=== PATIENT | male | born 1970 | race Caucasian/White ===

== ENCOUNTER 2016-07-13 18:45 | Emergency (ER) | payer MEDICARE, OTHER ==
[~2016-07-13] VITALS: Ht 170.2 cm; Wt 52.7 kg
[2016-07-13 18:51] VITALS: Ht 170.2 cm; Wt 52.7 kg
--- NOTE | 2016-07-13 22:35 | ERA ---
ER Documentation Chief Complaint Date/Time DATE: 07/13/16 TIME: 22:34 Chief Complaint stays snf- run out insurance , unable to give insulin HPI The patient is a 46-year-old male, presenting to the ER because he does not have an insulin for 1 day. He was transferred from a snf to assisted living home because of insurance. However he was not able to get his insulin, therefore he came to the ER. He denies fever, chills, neck pain, chest pain, dyspnea, abdominal pain, vomiting. He had history of chronic diarrhea for more than 3 years. He is very uncooperative during history and declined physical exam Past medical history: Diabetes mellitus, legally blind, peripheral neuropathy Past surgical history: Eye surgery ROS All systems reviewed and are negative except as per history of present illness. Medications Home Meds Reported Medications Insulin Isophan/Regular (Humulin 70/30) 100 Units/Ml Susp, 10-12 UNIT SC BID WITH MEALS, EA 07/13/16 Loperamide Hcl* (Imodium*) 2 Mg Capsule, 2 MG PO PRN, CAP MAX 16 mg/day 07/13/16 Tramadol Hcl* (Ultram*) Unknown Strength Tablet, PO PRN Y for PAIN, TAB 07/13/16 Pregabalin* (Lyrica*) Unknown Strength Capsule, PO PRN, CAP 07/13/16 Allergies Allergies: Coded Allergies: No Known Allergy (Unverified , 07/13/16) Physical Exam Vitals Vital Signs Date Time Temp Pulse Resp B/P Pulse Ox O2 Delivery O2 Flow Rate FiO2 07/14/16 00:54 78 16 149/109 100 Room Air 07/13/16 23:16 74 16 129/99 100 Room Air 07/13/16 18:51 97.6 48 20 88/48 98 Physical Exam Const: No acute distress. Head: Atraumatic. Neck: Full range of motion. No meningismus. Resp: Clear to auscultation bilaterally. Cardio: Regular rate and rhythm, no murmurs. Abd: Soft, non distended, normal bowel sounds, non tender. Skin: No petechiae or rashes. Back: No midline or flank tenderness. Ext: No cyanosis, or edema. Neur: Limited because he did not cooperate Psych: Limited because he did not cooperate. Result Diagram: 2/23/17 2258 2/23/17 2258 Results 24 hrs Laboratory Tests Test 07/13/16 18:59 07/13/16 22:39 07/13/16 22:58 07/13/16 23:00 Bedside Glucose 358mg/dL 303mg/dL Activated Partial Thromboplast Time 27.4Sec Alanine Aminotransferase (ALT/SGPT) 46IU/L Albumin 3.9g/dl Albumin/Globulin Ratio 0.95 Alkaline Phosphatase 103IU/L Anion Gap 17 Aspartate Amino Transf (AST/SGOT) 34IU/L Basophils # 0.010^3/ul Basophils % 0.4% Blood Urea Nitrogen 17mg/dl Calcium Level 9.0mg/dl Carbon Dioxide Level 31mmol/L Chloride Level 96mmol/L Creatinine 0.47mg/dl Direct Bilirubin 0.00mg/dl Eosinophils # 0.310^3/ul Eosinophils % 4.9% Globulin 4.10g/dl Glucose Level 315mg/dl Hematocrit 34.7% Hemoglobin 11.3g/dl INR International Normalized Ratio 0.92 Indirect Bilirubin 0.0mg/dl Lymphocytes # 2.210^3/ul Lymphocytes % 42.4% Mean Corpuscular Hemoglobin 23.8pg Mean Corpuscular Hemoglobin Concent 32.6g/dl Mean Corpuscular Volume 73.1fl Mean Platelet Volume 11.9fl Monocytes # 0.510^3/ul Monocytes % 10.4% Neutrophils # 2.110^3/ul Neutrophils % 41.5% Nucleated Red Blood Cells # 0.010^3/ul Nucleated Red Blood Cells % 0.0/100WBC Platelet Count 50069^3/UL Potassium Level 4.7mmol/L Prothrombin Time 12.4Sec Prothrombin Time Ratio 1.0 Red Blood Count 4.7510^6/ul Red Cell Distribution Width 14.9% Sodium Level 139mmol/L Total Bilirubin 0.0mg/dl Total Protein 8.0g/dl Troponin I < 0.012ng/ml White Blood Count 5.110^3/ul Lactic Acid Level 1.1mmol/L Test 07/13/16 23:50 07/14/16 00:41 Urine Bilirubin NEGATIVE Urine Clarity CLEAR Urine Color LT. YELLOW Urine Glucose >=1000% Urine Hemoglobin TRACE Urine Ketones 15 Urine Leukocyte Esterase NEGATIVE Urine Microscopic RBC Pending Urine Microscopic WBC Pending Urine Nitrite NEGATIVE Urine Specific Olla 1.020 Urine Total Protein NEGATIVE Urine Urobilinogen 0.2 E.U./dL Urine pH 6.0 Bedside Glucose 281mg/dL Current Medications Medications (Trade) Dose Ordered Sig/Maral Route PRN Reason Start Time Stop Time Status Last Admin Dose Admin Sodium Chloride (NS) 1,630 ml @ 1,630 mls/hr BOLUS X1 ONCE IV 07/13/16 23:00 07/13/16 23:59 DC 07/13/16 23:05 Insulin Human Lispro (Humalog) 6 unit ONCE ONCE SC 07/14/16 01:26 07/14/16 01:28 DC Procedures/[place] [id number] Radiology Main Line: [phone] DIAGNOSTIC IMAGING REPORT Patient: CARITO LEES : 1970 Age: 46 Sex: M MR #: [id number] DOS: 07/13/16 2259 Ordering MD: EBER GABRIEL MD Location: E/R Room/Bed: PROCEDURE: XR Chest. CLINICAL INDICATION: Possible sepsis. TECHNIQUE: Portable AP supine views of the chest were obtained. COMPARISON: None. FINDINGS: The cardiomediastinal silhouette is within normal limits. The lungs are clear. There is no evidence for pleural effusion, pneumothorax or pulmonary vascular congestion. The osseous structures are intact with no evidence for acute abnormality. RPTAT:HJJR IMPRESSION: No evidence for acute intrathoracic pathology. Physician Devi Date Time Electronically viewed and signed by Physician Devi on 07/13/2016 23:52 JR/ CC: EBER GABRIEL MD EKG: Read by emergency physician Rate/Rhythm: Normal Sinus Rhythm 80 beats/min QRS, ST, T-waves: No ST elevation, no T inversion Impression: Normal EKG MEDICAL MAKING DECISION: The patient is a 46-year-old male, presenting with acute diabetic hyperglycemia, acute dehydration. He was treated with normal saline 30 mL/kg IV, Humalog 6 units subcutaneously with good response. The differential diagnoses considered include but are not limited to HHS, DKA, dehydration, electrolyte imbalance, infection, medical noncompliance Departure Diagnosis: Primary Impression: Diabetes mellitus with hyperglycemia Additional Impressions: Dehydration Anemia Condition: Good Comments I discussed the findings with the patient. I advised the patient to follow-up with the primary physician in about 1-2 days, sooner if needed and return if any concern. EBER GABRIEL MD Jul 13, 2016 22:35
[2016-07-13] MEDS ORDERED: LYRI25 PO (22:43)
[2016-07-13] MEDS ORDERED: TRAM-40 PO (22:44)
[2016-07-13] MEDS ORDERED: LOPE2CAP PO (22:45)
[2016-07-13] MEDS ORDERED: NOVO7030 SC (22:45)
[2016-07-13] MEDS ORDERED: SOD CHLORIDE 0.9% IV ONE (23:00)
[2016-07-13 23:43] LABS: ADD SCAN DIFF NO
[2016-07-13 23:52] LABS: BASOPHILS % 0.4 % (0.0-2.0); EOSINOPHILS # 0.3 10^3/ul (0.0-0.5); EOSINOPHILS % 4.9 % (0.0-7.0); HEMATOCRIT 34.7 % (42.0-52.0); HEMOGLOBIN 11.3 g/dl (14.0-18.0); LYMPHOCYTES # 2.2 10^3/ul (0.8-2.9); LYMPHOCYTES % 42.4 % (15.0-51.0); MEAN CORPUSCULAR HEMOGLOBIN 23.8 pg (29.0-33.0); MEAN CORPUSCULAR HGB CONC 32.6 g/dl (32.0-37.0); MEAN CORPUSCULAR VOLUME 73.1 fl (82.0-101.0); MEAN PLATELET VOLUME 11.9 fl (7.4-10.4); MONOCYTE # 0.5 10^3/ul (0.3-0.9); MONOCYTES % 10.4 % (0.0-11.0); NEUTROPHIL # 2.1 10^3/ul (1.6-7.5); NEUTROPHILS % 41.5 % (39.0-77.0); PLATELET COUNT 195 10^3/UL (140-415); RED BLOOD COUNT 4.75 10^6/ul (4.70-6.10); RED CELL DISTRIBUTION WIDTH 14.9 % (11.5-14.5); WHITE BLOOD COUNT 5.1 10^3/ul (4.8-10.8)
--- NOTE | 2016-07-13 23:52 | RADRPT ---
PROCEDURE: XR Chest. CLINICAL INDICATION: Possible sepsis. TECHNIQUE: Portable AP supine views of the chest were obtained. COMPARISON: None. FINDINGS: The cardiomediastinal silhouette is within normal limits. The lungs are clear. There is no evidenc e for pleural effusion, pneumothorax or pulmonary vascular congestion. The osseous structures are i ntact with no evidence for acute abnormality. RPTAT:HJJR IMPRESSION: No evidence for acute intrathoracic pathology. Physician Devi Date Time Electronically viewed and signed by Physician Devi on 07/13/2016 23:52 JR/
[2016-07-14 00:01] LABS: CHLORIDE 96 mmol/L (97-110); INR 0.92; PROTIME 12.4 Sec (12.2-14.2)
[2016-07-14 00:02] LABS: ALBUMIN 3.9 g/dl (3.3-4.9); PARTIAL THROMBOPLASTIN TIME 27.4 Sec (25.0-35.0); POTASSIUM 4.7 mmol/L (3.5-5.1); SODIUM 139 mmol/L (135-144)
[2016-07-14 00:04] LABS: CREATININE 0.47 mg/dl (0.61-1.24)
[2016-07-14 00:05] LABS: ALANINE AMINOTRANSFERASE 46 IU/L (13-69); ALBUMIN/GLOBULIN RATIO 0.95; ALKALINE PHOSPHATASE 103 IU/L (42-121); ANION GAP 17 (8-16); ASPARTATE AMINO TRANSFERASE 34 IU/L (15-46); BLOOD UREA NITROGEN 17 mg/dl (7-20); CARBON DIOXIDE 31 mmol/L (21-31); GLUCOSE 315 mg/dl (70-220)
[2016-07-14 00:31] LABS: TROPONIN-I < 0.012 ng/ml (0.00-0.12)
[2016-07-14 01:25] LABS: ADD UMIC YES; URINE BILIRUBIN (Dip) NEGATIVE (NEGATIVE); URINE BLOOD (Dip) TRACE (NEGATIVE); URINE COLOR LT. YELLOW (YELLOW); URINE GLUCOSE (Dip) >=1000 % (NEGATIVE); URINE KETONES (Dip) 15 (NEGATIVE); URINE LEUKOCYTE ESTERASE (Dip) NEGATIVE (NEGATIVE); URINE NITRITE (Dip) NEGATIVE (NEGATIVE); URINE TOTAL PROTEIN (Dip) NEGATIVE (NEGATIVE); URINE UROBILINOGEN (Dip) 0.2 E.U./dL (0.1-1.0)
[2016-07-14] MEDS ORDERED: INSULIN LISPRO 100 UNIT/ML VIAL SC ONE (01:26)
[2016-07-14 01:35] LABS: BACTERIA,URINE RARE; SQUAMOUS EPITHELIAL CELL,UR RARE; URINE RBCS 0-2 /HPF (0)
[2016-07-14 14:33] VITALS: BP 133/71; PULSE 71; RESP 20; TEMP 98.4
== END 2016-07-14 14:33 | disposition home or self-care (01) ==
LOC: E/R 18:45
DX: E11.65 Type 2 diabetes mellitus with hyperglycemia (principal); E86.0 Dehydration; D64.9 Anemia, unspecified; F17.210 Nicotine dependence, cigarettes, uncomplicated; Z79.4 Long term (current) use of insulin
CPT/HCPCS: 36415; 71010; 80053; 81001; 81003; 82962; 83605; 84484; 85025; 85610; 85730; 87040; 87086; 93005; 96360; 96361; 96372; 99285; J1815; J7030